=== PATIENT | male | born 1995 | race Asian ===

== ENCOUNTER 2019-02-09 12:50 | Emergency (ER) | payer OTHER ==
[~2019-02-09] VITALS: Ht 172.7 cm; Wt 68.0 kg
[2019-02-09 12:55] VITALS: Ht 172.7 cm; Wt 68.0 kg
[2019-02-09 15:56] VITALS: BP 139/92
== END 2019-02-09 15:56 ==
LOC: ED 12:50
DX: R00.0 Tachycardia, unspecified (principal); R05 Cough
CPT/HCPCS: Q0092